=== PATIENT | male | born 1970 | race Caucasian/White ===

== ENCOUNTER 2022-01-29 08:36 | Emergency (ER) | payer SELFPAY ==
[2022-01-29 10:13] LABS: Bilirubin Negative (Negative); Blood, Urine Negative (Negative); Clarity Clear (Clear); Glucose, Urine (Dipstick) Negative (Negative); Ketone, Urine Negative (Negative); Leukocyte Negative (Negative); Nitrite Negative (Negative); Protein, Urine (Dipstick) Negative (Neg-Trace); Specific Gravity, Urine 1.025 (1.005-1.030); Urobilinogen 0.2 mg/dL (Less than 2); pH, Urine 7.5 (5.0-9.0)
[2022-01-29] MEDS ORDERED: Albuterol 200 PUFF (6.7GM INHALER) ONE (11:31)
== END 2022-01-29 12:43 | disposition home or self-care (01) ==
LOC: MADERS 08:36
DX: U07.1 COVID-19 (principal); J20.9 Acute bronchitis, unspecified
CPT/HCPCS: 71045; 81003; 87804; U0003; U0005